=== PATIENT | male | born 1975 | race Caucasian/White ===

== ENCOUNTER 2023-10-21 09:13 | Day surgery (SDC) | payer OTHER ==
[~2023-10-21 09:13] MED LIST: Lactated Ringers 1,000 ML IV SCH
[2023-10-21] MEDS: Lactated Ringers 1,000 ML IV SCH (09:46)
[2023-10-21] MEDS ORDERED: fentaNYL 100 MCG/2 ML SDV ONE (11:21)
[2023-10-21] MEDS ORDERED: Propofol 200 MG/20 ML SDV ONE ×2 (11:21→11:37)
[2023-11-10] MEDS ORDERED: Lactated Ringers 1,000 ML IV SCH (07:00)
== END 2023-10-21 12:44 | disposition home or self-care (01) ==
LOC: VM.SDS 09:13
PROVIDERS: ATTEND Student in an Organized Health Care Education/Training Program
DX: R10.13 Epigastric pain (principal); E78.00 Pure hypercholesterolemia, unspecified; Z79.899 Other long term (current) drug therapy; Z80.0 Family history of malignant neoplasm of digestive organs
CPT/HCPCS: 00731; J2704; J3010; J7120

== ENCOUNTER 2024-07-06 07:44 | Day surgery (SDC) | payer OTHER ==
[2024-07-06] MEDS ORDERED: Propofol 200 MG/20 ML SDV ONE ×3 (08:04→09:54)
[2024-07-06] MEDS ORDERED: fentaNYL 100 MCG/2 ML SDV ONE (08:04)
[2024-07-06] MEDS: Lactated Ringers 1,000 ML IV SCH (08:11)
== END 2024-07-06 11:05 | disposition home or self-care (01) ==
LOC: VM.SDS 07:44
PROVIDERS: ATTEND Student in an Organized Health Care Education/Training Program
DX: Z12.11 Encounter for screening for malignant neoplasm of colon (principal); D12.0 Benign neoplasm of cecum; D12.2 Benign neoplasm of ascending colon; K63.5 Polyp of colon; E78.00 Pure hypercholesterolemia, unspecified
CPT/HCPCS: 00811; J2704; J3010; J7120